=== PATIENT | male | born 1990 | race Two or more races ===

== ENCOUNTER 2023-06-19 20:04 | Emergency (ER) | payer BC, OTHER ==
[~2023-06-19] VITALS: Ht 177.8 cm; Wt 108.7 kg
[2023-06-19 21:07] LABS: Basophils # (auto) 0.1 10 ^3/uL (0-0.2); Basophils % (auto) 0.7 % (0.0-2.0); Eosinophils # (auto) 0.1 10 ^3/uL (0-0.8); Eosinophils % (auto) 1.2 % (0.0-7.0); Hematocrit 44.2 % (41.0-53.0); Hemoglobin 15.2 g/dL (13.5-17.5); Lymphocytes # (auto) 1.8 10 ^3/uL (0.4-5.4); Lymphocytes % (auto) 24.2 % (10.0-50.0); Mean Corpuscular Hemoglobin 30.6 pg (28.0-32.0); Mean Corpuscular Hgb Conc. 34.4 g/dL (32.0-36.0); Mean Corpuscular Volume 89.1 fL (80.0-100.0); Monocytes # (auto) 0.8 10 ^3/uL (0-1.3); Monocytes % (auto) 10.8 % (0.0-12.0); Neutrophils # (auto) 4.8 10 ^3/uL (1.6-8.6); Neutrophils % (auto) 63.1 % (37.0-80.0); Nucleated Red Blood Cells % 0.4 %; Red Blood Cells 4.96 10^6/uL (4.5-5.90); Red Cell Distribution Width 13.6 % (11.8-14.3); White Blood Cell 7.5 10^3/uL (4.4-10.8)
[2023-06-19] MEDS: ONDANSETRON HCL 4 MG/2 ML VIAL IV ONE (21:13)
[2023-06-19] MEDS: MORPHINE SULFATE 4 MG/ML SYR/VIAL IV ONE (21:14)
[2023-06-19 21:30] LABS: Alanine Aminotransferase 75 U/L (7-40); Albumin 4.6 g/dL (3.2-4.8); Alkaline Phosphatase 52 U/L (46-116); Anion Gap 11 (5-15); Aspartate Aminotransferase 31 U/L (13-40); BUN/Creatinine Ratio 12.6 (10.0-20.0); Blood Urea Nitrogen 13 mg/dL (9-23); Calcium 9.6 mg/dL (8.7-10.4); Carbon Dioxide 22 mmol/L (20-30); Chloride 108 mmol/L (98-107); Glucose 149 mg/dL (74-106); Lipase 32 U/L (12-53); Potassium 3.4 mmol/L (3.5-5.1); Sodium 141 mmol/L (136-145)
[2023-06-19 21:31] LABS: Bilirubin, Total 0.9 mg/dL (0.2-1.0); Total Protein 7.7 g/dL (5.7-8.2)
[2023-06-20 00:42] LABS: Urine Bacteria NONE SEEN /hpf (None Seen); Urine Blood 3+ /uL (Negative); Urine Clarity HAZY (Clear); Urine Color Yellow (Yellow); Urine Mucus FEW (None Seen); Urine Protein, UAD 1+ (Negative); Urine Specific Gravity 1.029 (1.001-1.035); Urine WBC 16 /hpf (0 - 3)
[2023-06-20] MEDS ORDERED: IBUP-1455 PO (04:27)
[2023-06-20] MEDS ORDERED: TAMS-35 PO (04:27)
[2023-06-20] MEDS ORDERED: ZOFR4T PO (04:27)
[2023-06-20] MEDS ORDERED: ACET-1304 PO (04:27)
[2023-06-20 04:44] VITALS: BP 156/89; PULSE 104; RESP 19; TEMP 98.1; O2SAT 98
== END 2023-06-20 04:47 | disposition home or self-care (01) ==
LOC: ER 20:04
DX: N20.1 Calculus of ureter (principal); Z98.890 Other specified postprocedural states
CPT/HCPCS: 36415; 74176; 76870; 80053; 81001; 83690; 85025; 96374; 96375; 99285; J2270; J2405